=== PATIENT | male | born 1975 | race Caucasian/White ===

== ENCOUNTER → 2023-11-06 06:29 | Day surgery (SDC) | payer OTHER, SELFPAY ==
[2023-11-06 11:12] LABS: Glucose - Point of Care 100 mg/dl (70-99)
== END ==
LOC: GI 06:29
PROVIDERS: ATTENDING PHYSICIAN Internal Medicine Gastroenterology
DX: Z12.11 Encounter for screening for malignant neoplasm of colon (principal); D12.2 Benign neoplasm of ascending colon; K57.30 Diverticulosis of large intestine without perforation or abscess without bleeding; K64.8 Other hemorrhoids
CPT/HCPCS: 45385; 88305; 82962

== ENCOUNTER → 2023-12-12 08:16 | Outpatient (REF) | payer OTHER, SELFPAY | LOC: HWRAD 08:16 | PROVIDERS: ATTENDING PHYSICIAN Internal Medicine; FAMILY PHYSICIAN Family Medicine | DX: C16.0 Malignant neoplasm of cardia (principal) | CPT/HCPCS: 71260; 74177; Q9967 ==

== ENCOUNTER 2023-12-17 11:54 | Outpatient (RCR) | payer OTHER, SELFPAY | END 2023-12-18 12:43 | disposition home or self-care (01) | LOC: RPT 11:54 | PROVIDERS: ATTENDING PHYSICIAN Family Medicine | DX: M77.12 Lateral epicondylitis, left elbow (principal); M75.82 Other shoulder lesions, left shoulder; M25.512 Pain in left shoulder; M79.632 Pain in left forearm | CPT/HCPCS: 97010; 97110; 97162; 97535 ==

== ENCOUNTER → 2024-03-11 09:05 | Outpatient (REF) | payer OTHER, SELFPAY | LOC: HWRAD 09:05 | PROVIDERS: ATTENDING PHYSICIAN Internal Medicine; FAMILY PHYSICIAN Family Medicine | DX: C16.0 Malignant neoplasm of cardia (principal) | CPT/HCPCS: 71260; 74177; Q9967 ==

== ENCOUNTER → 2024-06-09 08:02 | Outpatient (REF) | payer OTHER, SELFPAY | LOC: HWRAD 08:02 | PROVIDERS: ATTENDING PHYSICIAN Nurse Practitioner Family; FAMILY PHYSICIAN Family Medicine | DX: C16.0 Malignant neoplasm of cardia (principal) | CPT/HCPCS: 71260; 74177; Q9967 ==

== ENCOUNTER → 2024-10-09 10:25 | Outpatient (REF) | payer OTHER, SELFPAY | LOC: RAD 10:25 | PROVIDERS: ATTENDING PHYSICIAN Internal Medicine Hematology & Oncology; FAMILY PHYSICIAN Family Medicine | DX: C16.0 Malignant neoplasm of cardia (principal) | CPT/HCPCS: 71260; 74177; Q9967 ==

== ENCOUNTER → 2025-03-30 08:05 | Outpatient (REF) | payer OTHER, SELFPAY | LOC: RAD 08:05 | PROVIDERS: ATTENDING PHYSICIAN Physician Assistant; FAMILY PHYSICIAN Family Medicine | DX: C16.0 Malignant neoplasm of cardia (principal) | CPT/HCPCS: 71260; 74177; Q9967 ==

== ENCOUNTER 2025-05-20 19:07 | Outpatient (RCR) | payer OTHER, SELFPAY | END 2025-05-20 23:59 | disposition home or self-care (01) | LOC: RPT 19:07 | PROVIDERS: ATTENDING PHYSICIAN Family Medicine | DX: M25.571 Pain in right ankle and joints of right foot (principal); Z73.6 Limitation of activities due to disability; M62.81 Muscle weakness (generalized) | CPT/HCPCS: 97110; 97112; 97161 ==